=== PATIENT | male | born 1995 | race Two or more races ===

== ENCOUNTER 2022-12-30 10:47 | Inpatient (IN) | payer OTHER ==
[2022-12-30 11:16] VITALS: BMI 15.7
[2022-12-30] MEDS ORDERED: ACETAMINOPHEN 325 MG TABLET (FP) PO PRN (11:54)
[2022-12-30] MEDS ORDERED: IBUPROFEN 600 MG TABLET (FP) PO PRN (11:54)
[2022-12-30] MEDS ORDERED: BENZOCAINE/MENTHOL (CHLORASEPTIC ) LOZENGE MM PRN (11:54)
[2022-12-30] MEDS ORDERED: IBUPROFEN 400 MG TABLET (FP) PO PRN (11:54)
[2022-12-30] MEDS ORDERED: DICYCLOMINE HCL 10 MG CAPSULE PO PRN (11:54)
[2022-12-30] MEDS ORDERED: NALOXONE HCL (KLOXXADO) 8 MG SPRAY NS PRN (11:54)
[2022-12-30] MEDS ORDERED: NICOTINE 10 MG CARTRIDGE (INHALER) IH PRN (11:54)
[2022-12-30] MEDS ORDERED: ONDANSETRON *ODT* 4 MG TABLET SL PRN (11:54)
[2022-12-30] MEDS ORDERED: LOPERAMIDE HCL 2 MG CAPSULE PO PRN (11:54)
[2022-12-30] MEDS ORDERED: BENZONATATE 200 MG CAPSULE PO PRN (11:54)
[2022-12-30] MEDS ORDERED: MAGNESIUM HYDROX 2400MG/30ML ORAL SUSPENSION 30 ML CUP PO PRN (11:54)
[2022-12-30] MEDS ORDERED: MAG HYDROX/AL HYDROX/SIMETH 30 ML UNIT-DOSE CUP PO PRN (11:54)
[2022-12-30] MEDS ORDERED: METHOCARBAMOL 500 MG TABLET PO PRN (11:54)
[2022-12-30] MEDS ORDERED: hydrOXYzine PAMOATE 25 MG CAPSULE (FP) PO PRN (11:54)
[2022-12-30] MEDS ORDERED: guaiFENesin 600 MG TABLET.ER (FP) PO PRN (11:54)
[2022-12-30] MEDS ORDERED: NALOXONE HCL 0.4 MG/ML VIAL IM PRN (11:54)
[2022-12-30] MEDS ORDERED: POLYETHYLENE GLYCOL (HEALTHYLAX) 3350 17 GM PACKET PO PRN (11:54)
[2022-12-30] MEDS ORDERED: LORazepam 1 MG TABLET PO PRN (11:54)
[2022-12-30] MEDS ORDERED: BISMUTH SUBSALICYLATE 262 MG/15 ML BTL PO PRN (11:54)
[2022-12-30] MEDS ORDERED: LORazepam 2 MG TABLET ONE (12:48)
[2022-12-30] MEDS: LORazepam 2 MG TABLET PO SCH ×3 (12:50→22:11)
[2022-12-30 16:15] LABS: POTASSIUM 4.5 mmol/L (3.5-5.1)
[2022-12-30 16:17] LABS: ALBUMIN 3.4 g/dl (3.4-5.0); BLOOD UREA NITROGEN 5.2 mg/dL (7-18); CALCIUM 9.4 mg/dL (8.5-10.1)
[2022-12-30 16:19] LABS: HEMATOCRIT 27.8 % (35.4-49); HEMOGLOBIN 8.6 GM/dL (11.7-16.9); MCH 21.5 pg (25.7-33.7); MCHC 30.9 g/dl (32.0-35.9); MEAN CELL VOLUME 69.4 fl (80-96); MEAN PLT VOLUME 8.2 fl (7.5-11.1); PLATELET COUNT 202 10^3/uL (134-434); RDW 16.3 % (11.9-15.9); WHITE BLOOD COUNT 5.7 K/mm3 (4.0-10.0)
[2022-12-30 16:20] LABS: CREATININE 0.7 mg/dL (0.55-1.3)
[2022-12-30 16:22] LABS: BILIRUBIN,TOTAL 2.1 mg/dL (0.2-1); TOT PROT 8.1 g/dl (6.4-8.2)
[2022-12-30] MEDS: MELATONIN 5 MG TABLETS PO SCH (22:11)
[2022-12-30] MEDS: THIAMINE HCL 100 MG TABLET (FP) PO SCH (22:11)
[2022-12-31] MEDS: LORazepam 2 MG TABLET PO SCH ×4 (06:00→22:30)
[2022-12-31] MEDS: PRENATAL VITAMINS W/ FOLIC ACID TABLET (FP) PO SCH (10:11)
[2022-12-31] MEDS: LACTULOSE 20 GM/30 ML UDC (FOR ORAL USE ONLY) PO SCH ×3 (14:36→22:30)
[2022-12-31 15:04] LABS: INR 1.21 (0.83-1.09)
[2022-12-31] MEDS: MELATONIN 5 MG TABLETS PO SCH (22:30)
[2022-12-31] MEDS: THIAMINE HCL 100 MG TABLET (FP) PO SCH (22:30)
[2023-01-01] MEDS: LORazepam 1 MG TABLET PO SCH ×4 (05:28→22:05)
[2023-01-01 09:58] LABS: HEMATOCRIT 27.7 % (35.4-49); HEMOGLOBIN 8.6 GM/dL (11.7-16.9); MCH 21.5 pg (25.7-33.7); MCHC 31.1 g/dl (32.0-35.9); MEAN CELL VOLUME 69.1 fl (80-96); MEAN PLT VOLUME 7.9 fl (7.5-11.1); PLATELET COUNT 277 10^3/uL (134-434); RBC 4.01 M/mm3 (4.00-5.60); RDW 17.1 % (11.9-15.9); WHITE BLOOD COUNT 5.4 K/mm3 (4.0-10.0)
[2023-01-01 10:00] LABS: POTASSIUM 4.2 mmol/L (3.5-5.1)
[2023-01-01 10:18] LABS: ALBUMIN 3.2 g/dl (3.4-5.0); BLOOD UREA NITROGEN 6.5 mg/dL (7-18)
[2023-01-01 10:20] LABS: BILIRUBIN,TOTAL 1.5 mg/dL (0.2-1); CALCIUM 9.9 mg/dL (8.5-10.1); CREATININE 0.8 mg/dL (0.55-1.3); TOT PROT 7.8 g/dl (6.4-8.2)
[2023-01-01] MEDS: PRENATAL VITAMINS W/ FOLIC ACID TABLET (FP) PO SCH (10:23)
[2023-01-01] MEDS: LACTULOSE 20 GM/30 ML UDC (FOR ORAL USE ONLY) PO SCH ×4 (10:23→22:05)
[2023-01-01] MEDS: MELATONIN 5 MG TABLETS PO SCH (22:05)
[2023-01-01] MEDS: THIAMINE HCL 100 MG TABLET (FP) PO SCH (22:05)
[2023-01-02] MEDS ORDERED: LORazepam 0.5 MG TABLET PO PRN
[2023-01-02] MEDS: LORazepam 0.5 MG TABLET PO SCH ×4 (05:23→22:09)
[2023-01-02] MEDS: PRENATAL VITAMINS W/ FOLIC ACID TABLET (FP) PO SCH (10:04)
[2023-01-02] MEDS: LACTULOSE 20 GM/30 ML UDC (FOR ORAL USE ONLY) PO SCH ×4 (10:04→22:10)
[2023-01-02] MEDS: THIAMINE HCL 100 MG TABLET (FP) PO SCH (22:10)
[2023-01-02] MEDS: MELATONIN 5 MG TABLETS PO SCH (22:10)
[2023-01-03] MEDS ORDERED: LORazepam 0.5 MG TABLET PO ONE (05:00)
[2023-01-03] MEDS: LACTULOSE 20 GM/30 ML UDC (FOR ORAL USE ONLY) PO SCH ×4 (09:45→22:14)
[2023-01-03] MEDS: PRENATAL VITAMINS W/ FOLIC ACID TABLET (FP) PO SCH (09:45)
[2023-01-03] MEDS: THIAMINE HCL 100 MG TABLET (FP) PO SCH (22:15)
[2023-01-03] MEDS: MELATONIN 5 MG TABLETS PO SCH (22:15)
[2023-01-04 09:36] VITALS: BP 106/70; PULSE 90; RESP 16; TEMP 97.7
== END 2023-01-04 09:34 | disposition home or self-care (01) | DRG 775 ==
LOC: YASAS 10:47 → Y3N 12:03
PROVIDERS: ADMIT Allergy & Immunology; ATTEND Surgery
PROC: HZ2ZZZZ Detoxification Services for Substance Abuse Treatment (ICD-10-PCS; principal; 2022-12-30)
DX: F10.230 Alcohol dependence with withdrawal, uncomplicated (principal); D64.9 Anemia, unspecified; K74.60 Unspecified cirrhosis of liver; R79.89 Other specified abnormal findings of blood chemistry; R74.8 Abnormal levels of other serum enzymes
CPT/HCPCS: 36415; 80053; 82140; 82607; 82746; 83540; 83550; 85027; 85045; 85610; 85730; 86780; 87811; 93005; 93010; C9803-CS; U0003; U0005